=== PATIENT | male | born 1960 | race African-American/Black ===

== ENCOUNTER 2019-11-16 10:05 | Inpatient (IN) | payer MEDICAID ==
[~2019-11-16] VITALS: Ht 175.3 cm; Wt 73.6 kg
[2019-11-16] MEDS ORDERED: SODIUM CHLORIDE 0.9% 1,000 ML IV ONE (10:17)
[2019-11-16] MEDS ORDERED: HYDR25TA4 PO (10:23)
[2019-11-16] MEDS ORDERED: LEVE250T18 PO (10:23)
[2019-11-16] MEDS ORDERED: LISI30TA4 PO (10:23)
[2019-11-16] MEDS ORDERED: METH750T3 PO (10:24)
[2019-11-16] MEDS ORDERED: ASPirin 81 mg TAB PO ONE (10:30)
[2019-11-16 11:08] LABS: Basophils # (auto) 0 10 ^3/uL (0-0.2); Basophils % (auto) 0.3 % (0.0-2.0); Eosinophils # (auto) 0.2 10 ^3/uL (0-0.8); Eosinophils % (auto) 5.1 % (0.0-7.0); Lymphocytes # (auto) 1.4 10 ^3/uL (0.4-5.4); Lymphocytes % (auto) 40.5 % (10.0-50.0); Mean Corpuscular Hemoglobin 29.6 pg (28.0-32.0); Mean Corpuscular Hgb Conc. 33.3 g/dL (32.0-36.0); Mean Corpuscular Volume 88.9 fL (80.0-100.0); Monocytes # (auto) 0.2 10 ^3/uL (0-1.3); Monocytes % (auto) 6.7 % (0.0-12.0); Neutrophils # (auto) 1.6 10 ^3/uL (1.6-8.6); Neutrophils % (auto) 47.4 % (37.0-80.0); Nucleated Red Blood Cells % 0.1 %; Platelet Count (auto) 196 10^3/uL (140-450); Red Blood Cells 4.72 10^6/uL (4.5-5.90); Red Cell Distribution Width 13.5 % (11.8-14.3); White Blood Cell 3.4 10^3/uL (4.4-10.8)
[2019-11-16 11:27] LABS: Albumin 3.9 g/dL (3.4-5.0); Anion Gap 3 (5-15); Blood Urea Nitrogen 17 mg/dL (7-18); Calcium 9.1 mg/dL (8.5-10.1); Carbon Dioxide 30 mmol/L (21-32); Chloride 104 mmol/L (98-107); Potassium 4.2 mmol/L (3.5-5.1); Sodium 137 mmol/L (136-145)
[2019-11-16 11:35] LABS: Alanine Aminotransferase 39 U/L (16-61); Alkaline Phosphatase 96 U/L (45-117); Aspartate Aminotransferase 27 U/L (15-37); BUN/Creatinine Ratio 15.7; Bilirubin, Total 0.3 mg/dL (0.2-1.0); GFR African American 89 mL/min; GFR Non-African American 74 mL/min; Glucose 83 mg/dL (74-106); Total Protein 7.7 g/dL (6.4-8.2)
[2019-11-16 11:50] LABS: INR 0.9 (0.9-1.15); Partial Thromboplastin Time 26.3 sec (23.0-31.2)
[2019-11-16 12:08] LABS: Urine WBC None Seen /hpf (0 - 3)
[2019-11-16 12:19] LABS: Urine Bacteria NONE SEEN /hpf (None Seen); Urine Blood Negative /uL (Negative); Urine Mucus FEW (None Seen); Urine Specific Gravity 1.014 (1.001-1.035)
[2019-11-16] MEDS ORDERED: MORPHINE SULF INJ 2 MG/ML SYRINGE 1ML IV PRN (13:45)
[2019-11-16] MEDS ORDERED: NITROGLYCERIN 0.4 MG SL TAB SL PRN (13:45)
[2019-11-16] MEDS ORDERED: LISINOPRIL 20 MG TAB PO ONE (14:00)
[2019-11-16 14:17] LABS: Cholesterol 207 mg/dL (< 200)
[2019-11-16 14:20] LABS: HDL Cholesterol 79 mg/dL (40-59); LDL Cholesterol 106 mg/dL (< 100); Triglycerides 100 mg/dL (< 150)
[2019-11-16] MEDS: levETIRAcetam 500 MG TAB PO SCH ×2 (14:39→21:22)
[2019-11-16 18:04] LABS: Free T4 (Free Thyroxine) 1.39 ng/dL (0.89-1.76)
--- NOTE | 2019-11-16 20:20 | NUR ---
pt got to floor from ED
--- NOTE | 2019-11-16 21:12 | NUR ---
PINK PEPPER SPRAY COLLECTED FROM PATIENT. SHOWROOM SALESPERSON KARTHIK COLLECTED ITEM IN PLASTIC BAG. PATIENT STICKER LABEL ON ITEM AND ON PLASTIC BAG. -RESOURCE NURSE
[2019-11-16] MEDS: ATORVASTATIN 20 MG TAB PO SCH (21:23)
[2019-11-16 22:00] VITALS: BP 100/74
[2019-11-17 01:45] VITALS: BP 107/71
--- NOTE | 2019-11-17 02:20 | NUR ---
pt complaint of chest pain, O2 provided, sating 100% on 2L n.c.Vital signs stable. Morphine given for pain. reassessed after 30mns, pt stated he feels better. will continue to monitor
[2019-11-17 05:00] VITALS: BP 100/59
[2019-11-17] MEDS: levETIRAcetam 500 MG TAB PO SCH ×2 (09:31→21:52)
[2019-11-17] MEDS: LISINOPRIL 20 MG TAB PO SCH (09:32)
--- NOTE | 2019-11-17 10:03 | NUR ---
Dr. Montenegro paged regarding patient is claustrophobic and there is no Ativan orders. Awaiting to call back.
--- NOTE | 2019-11-17 10:10 | NUR ---
Received new order from Dr. Montenegro, noted and carried it out.
[2019-11-17] MEDS ORDERED: LORazepam 2MG/ML-1ML VIAL IV ONE (10:15)
--- NOTE | 2019-11-17 14:03 | NUR ---
ss consult Per consult for advanced directive. Patient has been provided with advanced directive. Addendum: 11/17/19 at 1404 by Keily ROBLEDO Amended: Links added.
--- NOTE | 2019-11-17 19:30 | NUR ---
Opening Shift Note Assumed care of patient, awake and alert. No S/S of distress/SOB or pain. Instructed on POC and to call for assist PRN, will continue to monitor for changes Q1hr and PRN.
--- NOTE | 2019-11-17 20:00 | NUR ---
Patient is for Stress test in AM. Instructed patient that he is NPO after midnight. Patient verbalized understanding.
--- NOTE | 2019-11-17 20:24 | NUR ---
Dr. Ayala seen the patient at bedside.
[2019-11-17] MEDS: ATORVASTATIN 20 MG TAB PO SCH (21:51)
[2019-11-17] MEDS: LACOSAMIDE 50 MG TAB PO SCH (21:52)
[2019-11-17 22:00] VITALS: BP 90/53
--- NOTE | 2019-11-17 22:00 | NUR ---
IV insertion IV access obtained for Stress test in AM, via clean sterile technique by inserting 22 gauge catheter Right Hand after 1 attempt. IV secured properly. No trauma to site. Patient tolerated procedure well.
[2019-11-18] MEDS ORDERED: ADENOSINE 62 MG in GIVE UN-DILUTED 0 ML IV STA (07:58)
[2019-11-18 09:00] VITALS: BP 101/61
[2019-11-18] MEDS: levETIRAcetam 500 MG TAB PO SCH (10:00)
[2019-11-18] MEDS: LACOSAMIDE 50 MG TAB PO SCH (10:00)
[2019-11-18] MEDS: LISINOPRIL 20 MG TAB PO SCH (10:00)
--- NOTE | 2019-11-18 10:30 | NUR ---
Patient refused a stress test and wants to leave AMA.
--- NOTE | 2019-11-18 10:38 | NUR ---
AMA Note VERENA CLIFFORD states they want to leave the hospital Against Medical Advice (AMA). Patient encouraged to stay for further treatment/stabilization. Lan IBARRA notified of patient's wishes. Patient advised of the risks and benefits of leaving AMA. Patient verbalized understanding. Patient encouraged to return to the ER if symptoms do not improve or worsen.
--- NOTE | 2019-11-18 10:38 | NUR ---
Patient left [facility] CLAROS notified and left a message to Dr. Montenegro.
--- NOTE | 2019-11-18 11:47 | NUR ---
EEG ... PATIENT DISCHARGED.
== END 2019-11-18 10:40 | disposition left against medical advice (07) | DRG 53 ==
LOC: ER 10:05 → TELE 10:06 → TELE-WESTW 20:20
PROVIDERS: ADMIT Hospitalist; ATTEND Hospitalist
DX: G40.409 Other generalized epilepsy and epileptic syndromes, not intractable, without status epilepticus (principal); G93.41 Metabolic encephalopathy; R07.89 Other chest pain; I10 Essential (primary) hypertension; D72.819 Decreased white blood cell count, unspecified; G89.29 Other chronic pain; Z53.29 Procedure and treatment not carried out because of patient's decision for other reasons; F17.200 Nicotine dependence, unspecified, uncomplicated; Z79.899 Other long term (current) drug therapy; Z82.49 Family history of ischemic heart disease and other diseases of the circulatory system
CPT/HCPCS: 36415; 70450; 70551; 71045; 80053; 80061; 81001; 82607; 83036; 84439; 84443; 84484; 85025; 85610; 85730; 87081; 93005; 93306; 93886; 97163; G0378; J0153